=== PATIENT | male | born 1945 | race Hispanic/Latino ===

== ENCOUNTER 2017-12-17 11:58 | Emergency (ER) | payer MEDICARE ==
[2017-12-17 12:16] VITALS: BP 133/89; PULSE 99; RESP 16; TEMP 98.6; O2SAT 98
[2017-12-17] MEDS ORDERED: Lactated Ringer's 1,000 ML IV SCH (12:45)
[2017-12-17] MEDS ORDERED: Lactated Ringer's 500 ML IV SCH (13:00)
--- NOTE | 2017-12-17 13:33 | ED PDOC ---
HPI:Nausea, Vomiting, Diarrhea Time Seen by Provider: 12/17/17 12:05 Chief Complaint (Nursing): GI Problem Chief Complaint (Provider): GI Problem History Per: Patient History/Exam Limitations: no limitations Onset/Duration Of Symptoms: Days (x2) Current Symptoms Are (Timing): Still Present Additional Complaint(s): 72 year old male with medical history of renal malignancy S/P surgery, presents to the emergency department with a complaint of vomiting and diarrhea associated with generalized weakness, parched sensation and mild, crampy abdominal discomfort that is not exacerbated by movement ongoing since last night. Patient stated his had similar symptoms a few days ago. He denied any syncope, dizziness, urinary complaints, bloody stools or bloody vomiting. PMD: none provided Past Medical History Reviewed: Historical Data, Nursing Documentation, Vital Signs Vital Signs: Last Vital Signs Temp 98.6 F 12/17/17 12:13 Pulse 99 H 12/17/17 12:13 Resp 16 12/17/17 12:13 BP 133/89 12/17/17 12:13 Pulse Ox 98 12/17/17 12:13 - Medical History PMH: Back Problems (severe lumbar stenosis (4 years ago), Spondyloslisthesis (4 years ago)), HTN, Malignancy (renal) - Surgical History Surgical History: Appendectomy Other surgeries: nephrectomy - Family History Family History: States: Unknown Family Hx - Social History Current smoker - smoking cessation education provided: No Alcohol: None Drugs: Denies - Home Medications Home Medications: Ambulatory Orders Medication Instructions Recorded Meloxicam 15 mg PO DAILY #15 tablet 11/29/15 Ondansetron ODT [Zofran ODT] 4 mg PO Q6 PRN #10 odt 12/17/17 - Allergies Allergies/Adverse Reactions: Allergies Allergy/AdvReac Type Severity Reaction Status Date / Time No Known Allergies Allergy Verified 12/17/17 12:17 Review of Systems ROS Statement: Except As Marked, All Systems Reviewed And Found Negative Constitutional: Positive for: Weakness (generalized) Gastrointestinal: Positive for: Vomiting, Abdominal Pain (mild cramping and discomfort), Diarrhea, Other (parched). Negative for: Hematochezia, Hematemesis Genitourinary Male: Negative for: Dysuria, Incontinence, Hematuria Neurological: Negative for: Dizziness (or syncope) Physical Exam - Reviewed Nursing Documentation Reviewed: Yes Vital Signs Reviewed: Yes - Physical Exam Appears: Positive for: Non-toxic, No Acute Distress Head Exam: Positive for: ATRAUMATIC, NORMAL INSPECTION, NORMOCEPHALIC Skin: Positive for: Normal Color. Negative for: Pallor Eye Exam: Positive for: Normal appearance, EOMI, PERRL ENT: Positive for: Normal ENT Inspection Neck: Positive for: Normal Cardiovascular/Chest: Positive for: Regular Rate, Rhythm, Chest Non Tender Respiratory: Positive for: Normal Breath Sounds. Negative for: Decreased Breath Sounds, Respiratory Distress Gastrointestinal/Abdominal: Positive for: Normal Exam, Soft. Negative for: Tenderness, Mass Back: Positive for: Normal Inspection. Negative for: L CVA Tenderness, R CVA Tenderness Extremity: Positive for: Normal ROM (upper/lower). Negative for: Pedal Edema ( bilateral) Neurologic/Psych: Positive for: Alert, psychiatrist II-XII (intact), Oriented. Negative for: Motor/Sensory Deficits - ECG O2 Sat by Pulse Oximetry: 98 (RA) Pulse Ox Interpretation: Normal Medical Decision Making Medical Decision Making: Initial Impression: Dehydration Initial Plan: * Lactated Ringers 1,000ml IV per 1,000mls/hr * Lactated Ringers 500ml IV per 500mls/hr * Tylenol 650mg PO * Zofran 4mg IV ____ Time: 1230 --Patient is tolerating water well. --Patient refuses bloodwork. States that he has routine blood drawn every 3 months. --Requesting IV fluid, Tylenol and antiemetics. Time: 1315 --Reevaluation: patient is reporting improvement with nausea without any further episodes of diarrhea and hopeful for discharge. Provider discussed need for supportive care and plan of antiemetics. --Patient is requesting to go home. Time: 1348 --Upon provider reevaluation, patient is feeling better, medically stable and requires no further treatment in the ED at this time. Patient will be discharged home with Rx for Zofran 4mg. Counseling was provided and all questions were answered regarding diagnosis. There is agreement to discharge plan. Return if symptoms persist or worsen. Clinical Impression: Gastroenteritis Scribe Attestation: Documented by Rachel Irizarry, acting as a scribe for Weston Campos III, DO. Provider Scribe Attestation: All medical record entries made by the Scribe were at my direction and personally dictated by me. I have reviewed the chart and agree that the record accurately reflects my personal performance of the history, physical exam, medical decision making, and the department course for this patient. I have also personally directed, reviewed, and agree with the discharge instructions and disposition. Disposition - Clinical Impression Clinical Impression: Gastroenteritis - Patient ED Disposition Is Patient to be Admitted: No Counseled Patient/Family Regarding: Diagnosis, Need For Followup - Disposition Disposition: Routine/Home Disposition Time: 13:48 Condition: IMPROVED Additional Instructions: Take nausea medication zofran ODT every 6 hours as needed for nausea. Return to ER for any worse symptoms, pain, fever, blood in stool or vomit, or any concern. Prescriptions: Ondansetron ODT [Zofran ODT] 4 mg PO Q6 PRN #10 odt PRN Reason: Nausea/Vomiting Instructions: Gastroenteritis (ED) Forms: [employer] (Italian)
== END 2017-12-17 13:56 | disposition home or self-care (01) ==
LOC: H.ER 11:58
DX: K52.9 Noninfective gastroenteritis and colitis, unspecified (principal); I10 Essential (primary) hypertension; Z85.528 Personal history of other malignant neoplasm of kidney; M48.061 Spinal stenosis, lumbar region without neurogenic claudication
CPT/HCPCS: 96361; 96374; 99282; J2405; J7120

== ENCOUNTER 2018-05-03 15:58 | Observation (INO) | payer MEDICARE ==
[2018-05-03] MEDS ORDERED: Sodium Chloride 0.9% 1,000 ML IV STA (16:00)
--- NOTE | 2018-05-03 16:03 | ED PDOC ---
HPI: Abdomen Time Seen by Provider: 05/03/18 16:00 History Per: Patient Onset/Duration Of Symptoms: Days (1) Current Symptoms Are (Timing): Still Present Severity: Moderate Pain Scale Rating Of: 4 Location Of Pain/Discomfort: Epigastric, LUQ Quality Of Discomfort: Unable To Describe Associated Symptoms: denies: Fever, Nausea, Vomiting, Diarrhea Exacerbating Factors: None Alleviating Factors: None Additional Complaint(s): LUQ and epigastric abd pain since this AM.,Assoc with vomiting brownish liquid. No BM x 24 hrs. Denies fever. Past Medical History Vital Signs: Last Vital Signs Temp 98.3 F 05/03/18 16:09 Pulse 78 05/03/18 17:30 Resp 19 05/03/18 17:30 BP 136/74 05/03/18 17:30 Pulse Ox 98 05/03/18 17:30 - Medical History PMH: Back Problems (severe lumbar stenosis (4 years ago), Spondyloslisthesis (4 years ago)), HTN, Malignancy (renal) - Surgical History Surgical History: Appendectomy - Family History Family History: States: Unknown Family Hx - Home Medications Home Medications: Ambulatory Orders Medication Instructions Recorded Meloxicam 15 mg PO DAILY #15 tablet 11/29/15 Ondansetron ODT [Zofran ODT] 4 mg PO Q6 PRN #10 odt 12/17/17 - Allergies Allergies/Adverse Reactions: Allergies Allergy/AdvReac Type Severity Reaction Status Date / Time No Known Allergies Allergy Verified 12/17/17 12:17 Review of Systems Constitutional: Negative for: Fever Gastrointestinal: Positive for: Nausea, Vomiting, Abdominal Pain Physical Exam - Physical Exam Appears: Positive for: Non-toxic, Uncomfortable Skin: Positive for: Normal Color, Warm, DRY ENT: Positive for: Other (Mucous membranes dry) Gastrointestinal/Abdominal: Positive for: Normal Exam, Bowel Sounds, Tenderness (LUQ), Distended Back: Negative for: L CVA Tenderness, R CVA Tenderness - Laboratory Results Result Diagrams: 05/03/18 16:04 05/03/18 16:04 Disposition - Clinical Impression Clinical Impression: Abdominal pain, SBO (small bowel obstruction) - Patient ED Disposition Is Patient to be Admitted: Yes - Disposition Disposition Time: 18:41 Condition: FAIR - Pt Status Changed To: Hospital Disposition Of: Observation - POA Present On Arrival: None
[2018-05-03 16:10] LABS: BASO % 0.4 % (0.0-2.0); EOS # 0.1 K/uL (0.0-0.7); EOS % 0.4 % (0.0-4.0); HEMOGLOBIN 16.1 g/dL (12.0-18.0); LYMPH # 1.1 K/uL (1.0-4.3); LYMPH % 9.1 % (20.0-40.0); MEAN CELL VOLUME 85.2 fl (80.0-94.0); MEAN CORPUSCULAR HEMOGLOBIN 29.7 pg (27.0-31.0); MEAN CORPUSCULAR HGB CONC 34.9 g/dL (33.0-37.0); MEAN PLATELET VOLUME 7.7 fl (7.2-11.7); MONO # 0.6 K/uL (0.0-0.8); MONO % 4.9 % (0.0-10.0); NEUT # 10.5 K/uL (1.8-7.0); NEUT % 85.2 % (50.0-75.0); NRBC % 0.5 % (0.0-0.0); PLATELET COUNT 155 K/uL (130-400); RBC 5.42 Mil/uL (4.40-5.90); RED CELL DISTRIBUTION WIDTH 13.8 % (11.5-14.5); WHITE BLOOD COUNT 12.4 K/uL (4.8-10.8)
[2018-05-03 16:19] LABS: ALB/GLOB RATIO 1.4 (1.0-2.1); ALBUMIN 4.3 g/dL (3.5-5.0); ALT/SGPT 30 U/L (21-72); AST/SGOT 20 U/L (17-59); BLOOD UREA NITROGEN 18 mg/dl (9-20); CALCIUM 9.5 mg/dL (8.4-10.2); GFR AFRICAN-AMERICAN > 60; GFR NON-AFRICAN AMERICAN > 60; LIPASE 44 U/L (23-300)
[2018-05-03] MEDS ORDERED: Potassium Chloride 20 mEq ER Tab PO ONE (16:27)
[2018-05-03] MEDS ORDERED: Alum-Mag Hydrox-Simethicone Susp (30 mL) PO ONE (16:57)
[2018-05-03] MEDS ORDERED: Pantoprazole 40 mg EC Tab PO STA (17:11)
[2018-05-03] MEDS ORDERED: Pantoprazole 40 mg EC Tab PO ONE (17:16)
[2018-05-03] MEDS ORDERED: Iohexol 300 100 ML IJ ONE (17:32)
[2018-05-03] MEDS ORDERED: Sodium Chloride 0.9% 50 ML IV ONE (17:32)
--- NOTE | 2018-05-03 18:19 | CT ---
Date of service: 05/03/2018 PROCEDURE: CT Abdomen and Pelvis with contrast HISTORY: Abd pain COMPARISON: None. TECHNIQUE: Contrast dose: 95 mL Omnipaque 300 Radiation dose: Total exam DLP = is 843.5 mGy-cm. This CT exam was performed using one or more of the following dose reduction techniques: Automated exposure control, adjustment of the mA and/or kV according to patient size, and/or use of iterative reconstruction technique. FINDINGS: LOWER THORAX: Unremarkable. LIVER: Nonspecific 1.6 cm subcapsular hyper density in the left hepatic lobe (series 3, image 39). 1.2 cm left hepatic lobe cyst (series 3, image 21). 2.1 cm hypodense lesion with questionable peripheral nodular enhancement in the medial right hepatic lobe (series 3, image 37). Too small to characterize 8 mm hypodense lesion in the posterior inferior right hepatic lobe (series 3, image 50). Too small to characterize 8 mm hypodense lesion in the posterior inferior right hepatic lobe (series 3, image 56). No ductal dilatation. GALLBLADDER AND BILE DUCTS: Unremarkable. PANCREAS: Unremarkable. No gross lesion or ductal dilatation. SPLEEN: Multiple tiny splenic hypodensities. Splenomegaly. ADRENALS: Unremarkable. No mass. KIDNEYS AND URETERS: Small bilateral renal cysts. Tiny nonobstructive left renal calculi. No hydronephrosis. No solid mass. VASCULATURE: Unremarkable. No aortic aneurysm. BOWEL: Hiatal hernia. Small bowel dilatation measuring as wide as 3.7 cm with smooth very gradual taper with relative collapse of the distal ileum in the right lower quadrant. No gross mural thickening. APPENDIX: No findings to suggest acute appendicitis. PERITONEUM: Small bilateral fat containing inguinal hernias. No free fluid. No free air. LYMPH NODES: Unremarkable. No enlarged lymph nodes. BLADDER: Unremarkable. REPRODUCTIVE: Prostatomegaly. BONES: No acute fracture. Large sclerotic densities in the left iliac bone and left L2 vertebral body, likely bone islands. Grade 1 anterolisthesis of L4 on L5. OTHER FINDINGS: None. IMPRESSION: Multiple nonspecific hepatic lesions including a 1.6 cm left hepatic lobe subcapsular hyperdense lesion which may represent a vascular shunt or other hyperdense lesion with malignancy not excluded. Multiple hypodense hepatic lesions, mostly too small to characterize. A 2.1 cm medial right hepatic lobe hypodense lesion with peripheral nodular enhancement likely represents a hemangioma. Contrast-enhanced MRI of the liver can be obtained for further characterization as clinically warranted. Small bowel dilatation measuring as wide as 2.7 cm with smooth, gradual taper and relative collapse of the distal ileum in the anterior right lower quadrant. Findings may represent early/ developing small bowel obstruction. Additional findings as above.
[2018-05-03 18:38] LABS: BANDS 4 % (0-2); LYMPHOCYTE 12 % (20-50); MONOCYTE 6 % (0-10); NEUTROPHIL 78 % (42-75); TOTAL CELLS COUNTED 100
[2018-05-03 18:39] LABS: HYPOCHROMIC SLIGHT; MICROCYTOSIS SLIGHT; PLATELET ESTIMATE NORMAL (NORMAL)
[2018-05-03] MEDS ORDERED: Midazolam 2 MG/2 ML VIAL ONE (18:59)
[2018-05-03] MEDS ORDERED: Midazolam 2 MG/2 ML VIAL IV ONE (19:12)
--- NOTE | 2018-05-03 19:31 | CP.PCM.HP ---
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 No BM for 24 hours. Hx of appendectomy. CTAP early SBO. In ED, Surgical and GI consults were called, Drs. Ybarra and Rebeka. NGT placed. HD stable. NAD. ROS: per HPI ALL OTHER SYSTEMS REVIEWED AND NEGATIVE PMSH: HTN, renal malignancy, spinal stenosis, appendectomy FH: denies SH: denies tobacco ETOH IVDU NKDA Present on Admission - Present on Admission Any Indicators Present on Admission: No Past Patient History - Infectious Disease Hx of Infectious Diseases: None - Past Social History Smoking Status: Unknown If Ever Smoked - CARDIAC Hx Hypertension: Yes - PULMONARY Hx Respiratory Disorders: No - NEUROLOGICAL Hx Neurological Disorder: No - HEENT Hx Cataracts: Yes - RENAL Hx Renal (Kidney) Cancer: Yes - MUSCULOSKELETAL/RHEUMATOLOGICAL Hx Musculoskeletal Disorders: Yes Hx Spinal Stenosis: Yes - PSYCHIATRIC Hx Psychophysiologic Disorder: No Hx Substance Use: No - SURGICAL HISTORY Hx Appendectomy: Yes - ANESTHESIA Hx Anesthesia: Yes Hx Anesthesia Reactions: No Hx Malignant Hyperthermia: No Meds Allergies/Adverse Reactions: Allergies Allergy/AdvReac Type Severity Reaction Status Date / Time No Known Allergies Allergy Verified 12/17/17 12:17 Physical Exam - Constitutional Appears: Non-toxic, No Acute Distress - Head Exam Head Exam: ATRAUMATIC, NORMOCEPHALIC - Eye Exam Eye Exam: EOMI, Normal appearance - ENT Exam ENT Exam: Mucous Membranes Moist, Normal Oropharynx - Respiratory Exam Respiratory Exam: Clear to Auscultation Bilateral, NORMAL BREATHING PATTERN - Cardiovascular Exam Cardiovascular Exam: RRR, +S1, +S2 - GI/Abdominal Exam GI & Abdominal Exam: Hypoactive Bowel Sounds, Soft. absent: Mass, Organomegaly - Extremities Exam Extremities exam: Positive for: normal capillary refill, pedal pulses present - Back Exam Back exam: absent: CVA tenderness (L), CVA tenderness (R) - Neurological Exam Neurological exam: Alert, Oriented x3, Reflexes Normal - Psychiatric Exam Psychiatric exam: Normal Affect, Normal Mood - Skin Skin Exam: Dry, Warm Results - Vital Signs Recent Vital Signs: Last Vital Signs Temp 98.3 F 05/03/18 16:09 Pulse 76 05/03/18 19:17 Resp 19 05/03/18 17:30 BP 142/76 05/03/18 19:17 Pulse Ox 95 05/03/18 19:17 - Labs Result Diagrams: 05/03/18 16:04 05/03/18 16:04 Labs: Laboratory Results - last 24 hr 05/03/18 05/03/18 16:04 16:04 WBC 12.4 H RBC 5.42 Hgb 16.1 Hct 46.1 MCV 85.2 MCH 29.7 MCHC 34.9 RDW 13.8 Plt Count 155 MPV 7.7 Neut % (Auto) 85.2 H Lymph % (Auto) 9.1 L [place] % (Auto) 4.9 Eos % (Auto) 0.4 Baso % (Auto) 0.4 Neut # (Auto) 10.5 H Lymph # (Auto) 1.1 [place] # (Auto) 0.6 Eos # (Auto) 0.1 Baso # (Auto) 0.0 Neutrophils % (Manual) 78 H Band Neutrophils % 4 H Lymphocytes % (Manual) 12 L Monocytes % (Manual) 6 Platelet Estimate Normal Hypochromasia (manual) Slight Microcytosis (manual) Slight Sodium 141 Potassium 3.4 L Chloride 102 Carbon Dioxide 26 Anion Gap 16 BUN 18 Creatinine 0.9 Est GFR ( Amer) > 60 Est GFR (Non-Af Amer) > 60 Random Glucose 136 H Calcium 9.5 Total Bilirubin 1.5 H AST 20 ALT 30 Alkaline Phosphatase 118 Total Protein 7.4 Albumin 4.3 Globulin 3.1 Albumin/Globulin Ratio 1.4 Lipase 44 Assessment & Plan - Assessment and Plan (Free Text) Plan: 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 No BM for 24 hours. Hx of appendectomy. CTAP early SBO. In ED, Surgical and GI consults were called, Drs. Ybarra and Rebeka. NGT placed. HD stable. NAD. SBO CTAP: early SBO NGT placed NPO, with maintenance fluids GI and Surgery consults: Drs. Ybarra and Rebeka per patient request, no residents HTN Hydralazine IV PRN HTN
[2018-05-03] MEDS ORDERED: Iohexol 240 (50 ml) PO ONE (20:06)
[2018-05-03] MEDS: Potassium Ch 20mEq in D5-1/2NS 1,000 ML IV SCH (21:39)
[2018-05-04] MEDS: Potassium Ch 20mEq in D5-1/2NS 1,000 ML IV SCH (05:48)
[2018-05-04 08:09] VITALS: BP 145/94; PULSE 73; RESP 20; TEMP 97.5; O2SAT 96
[2018-05-04] MEDS ORDERED: Lactated Ringer's 1,000 ML IV SCH (10:30)
--- NOTE | 2018-05-04 10:52 | CP.PCM.CON ---
History of Present Illness - History of Present Illness History of Present Illness: 72 y.o. male comes to the hospital c/o abdominal pain for the duration of 1 day. Reports some nausea and 1 episodes of vomiting. Denies any fever or chills. Patient reports flatus this am, had a bowel movements yesterday. Currently states that feels much better and denies any abdominal pain, no nausea , no vomiting, no urinary symptoms, no sick contacts at home. Review of Systems - Constitutional Constitutional: As Per HPI - EENT Eyes: Other (unremarkable) Ears: Other (unremarkable) Nose/Mouth/Throat: Other (unremarkable) - Cardiovascular Cardiovascular: Other (unremarkable) - Respiratory Respiratory: Other (unremarkable) - Gastrointestinal Gastrointestinal: As Per HPI - Genitourinary Genitourinary: As Per HPI - Reproductive: Male Reproductive:Male: Other (unremarkable) - Musculoskeletal Musculoskeletal: Other (unremarkable) - Integumentary Integumentary: Other (unremarkable) - Neurological Neurological: Other (unremarkable) - Psychiatric Psychiatric: Other (unremarkable) - Endocrine Endocrine: Other (unremarkable) - Hematologic/Lymphatic Hematologic: Other (unremarkable) Past Patient History - Infectious Disease Hx of Infectious Diseases: None - Past Medical History & Family History Past Medical History?: Yes - Past Social History Smoking Status: Never Smoked - CARDIAC Hx Cardiac Disorders: Yes (HTN) Hx Hypertension: Yes - PULMONARY Hx Respiratory Disorders: No - NEUROLOGICAL Hx Neurological Disorder: No - HEENT Hx HEENT Problems: Yes Hx Cataracts: Yes - RENAL Hx Chronic Kidney Disease: No Other/Comment: Bening Renal tumor removed 5 yrs ago - ENDOCRINE/METABOLIC Hx Endocrine Disorders: No - HEMATOLOGICAL/ONCOLOGICAL Hx Blood Disorders: No Hx AIDS: No Hx Human Immunodeficiency Virus (HIV): No - INTEGUMENTARY Hx Dermatological Problems: No - MUSCULOSKELETAL/RHEUMATOLOGICAL Hx Musculoskeletal Disorders: Yes Hx Falls: No Hx Spinal Stenosis: Yes - GASTROINTESTINAL Hx Gastrointestinal Disorders: No - GENITOURINARY/GYNECOLOGICAL Hx Genitourinary Disorders: No - PSYCHIATRIC Hx Psychophysiologic Disorder: No Hx Substance Use: No - SURGICAL HISTORY Hx Surgeries: Yes Hx Appendectomy: Yes Other/Comment: b/l cataract, kidney surgery - ANESTHESIA Hx Anesthesia: Yes Hx Anesthesia Reactions: No Hx Malignant Hyperthermia: No Has any member of the family had a problem w/ anesthesia?: No Meds Allergies/Adverse Reactions: Allergies Allergy/AdvReac Type Severity Reaction Status Date / Time No Known Allergies Allergy Verified 12/17/17 12:17 - Medications Medications: Current Medications Hydromorphone HCl (Dilaudid) 0.5 mg IVP Q6 PRN PRN Reason: Pain, moderate (4-7) Last Admin: 05/04/18 08:43 Dose: 0.5 mg Potassium Chloride/Dextrose/Sod Cl (Potassium Chl 20 Meq In D5-1/2ns) 1,000 mls @ 125 mls/hr IV .Q8H LYLY Stop: 05/04/18 19:50 Last Admin: 05/04/18 05:48 Dose: 125 mls/hr Lactated Ringer's (Lactated Ringer's) 1,000 mls @ 100 mls/hr IV .Q10H [facility] Ondansetron HCl (Zofran Inj) 4 mg IVP Q6 PRN PRN Reason: Nausea/Vomiting Physical Exam - Constitutional Appears: Well, Non-toxic, No Acute Distress - Head Exam Head Exam: ATRAUMATIC, NORMAL INSPECTION, NORMOCEPHALIC - Eye Exam Eye Exam: EOMI, Normal appearance, PERRL Pupil Exam: NORMAL ACCOMODATION, PERRL - ENT Exam ENT Exam: Mucous Membranes Moist, Normal Exam - Neck Exam Neck exam: Positive for: Full Rom, Normal Inspection - Respiratory Exam Respiratory Exam: Clear to Auscultation Bilateral, NORMAL BREATHING PATTERN - Cardiovascular Exam Cardiovascular Exam: REGULAR RHYTHM, +S1, +S2 - GI/Abdominal Exam GI & Abdominal Exam: Normal Bowel Sounds, Soft Additional comments: NT, ND, BS+, no rebound, no guarding, well healed scar from prior appendectomy - Rectal Exam Rectal Exam: Deferred - Extremities Exam Extremities exam: Positive for: full ROM, normal inspection - Back Exam Back exam: NORMAL INSPECTION - Neurological Exam Neurological exam: Alert, CN II-XII Intact, Oriented x3 - Psychiatric Exam Psychiatric exam: Normal Affect, Normal Mood - Skin Skin Exam: Dry, Intact, Normal Color, Warm Results - Vital Signs Recent Vital Signs: Last Vital Signs Temp 97.5 F L 05/04/18 08:09 Pulse 73 05/04/18 08:09 Resp 20 05/04/18 08:09 BP 145/94 H 05/04/18 08:09 Pulse Ox 96 05/04/18 08:09 - Labs Result Diagrams: 05/03/18 16:04 05/03/18 16:04 Labs: Laboratory Results - last 24 hr 05/03/18 05/03/18 16:04 16:04 WBC 12.4 H RBC 5.42 Hgb 16.1 Hct 46.1 MCV 85.2 MCH 29.7 MCHC 34.9 RDW 13.8 Plt Count 155 MPV 7.7 Neut % (Auto) 85.2 H Lymph % (Auto) 9.1 L [place] % (Auto) 4.9 Eos % (Auto) 0.4 Baso % (Auto) 0.4 Neut # (Auto) 10.5 H Lymph # (Auto) 1.1 [place] # (Auto) 0.6 Eos # (Auto) 0.1 Baso # (Auto) 0.0 Neutrophils % (Manual) 78 H Band Neutrophils % 4 H Lymphocytes % (Manual) 12 L Monocytes % (Manual) 6 Platelet Estimate Normal Hypochromasia (manual) Slight Microcytosis (manual) Slight Sodium 141 Potassium 3.4 L Chloride 102 Carbon Dioxide 26 Anion Gap 16 BUN 18 Creatinine 0.9 Est GFR ( Amer) > 60 Est GFR (Non-Af Amer) > 60 Random Glucose 136 H Calcium 9.5 Total Bilirubin 1.5 H AST 20 ALT 30 Alkaline Phosphatase 118 Total Protein 7.4 Albumin 4.3 Globulin 3.1 Albumin/Globulin Ratio 1.4 Lipase 44 - Imaging and Cardiology CT scan - abdomen Status: Image reviewed by me, Report reviewed by me Assessment & Plan - Assessment and Plan (Free Text) Assessment: 72 y.o. male with abdominal pain that has improved, no evidence of bowel obstruction on the CT scan Plan: - Removed NG tube - start clear liquid diet - Advance diet as tolerated - If patient tolerates diet he is clear for discharge from the general surgery stand point
--- NOTE | 2018-05-04 12:17 | CP.PCM.DIS ---
Provider - Provider Date of Admission: 05/03/18 18:37 Attending physician: Miles Benavides DO Primary care physician: DR Knott Consults: Surgery : Dr Salvador GI : DR Staley Time Spent in preparation of Discharge (in minutes): 25 Diagnosis - Discharge Diagnosis (1) SBO (small bowel obstruction) Status: Acute (2) Abdominal pain Status: Acute (3) Prostatic enlargement Status: Chronic (4) Intra-abdominal adhesions Status: Acute (5) Renal stone Status: Acute Hospital Course - Lab Results Lab Results: Most Recent Lab Values WBC 12.4 K/uL (4.8-10.8) H 05/03/18 16:04 RBC 5.42 Mil/uL (4.40-5.90) 05/03/18 16:04 Hgb 16.1 g/dL (12.0-18.0) 05/03/18 16:04 Hct 46.1 % (35.0-51.0) 05/03/18 16:04 MCV 85.2 fl (80.0-94.0) 05/03/18 16:04 MCH 29.7 pg (27.0-31.0) 05/03/18 16:04 MCHC 34.9 g/dL (33.0-37.0) 05/03/18 16:04 RDW 13.8 % (11.5-14.5) 05/03/18 16:04 Plt Count 155 K/uL (130-400) 05/03/18 16:04 MPV 7.7 fl (7.2-11.7) 05/03/18 16:04 Neut % (Auto) 85.2 % (50.0-75.0) H 05/03/18 16:04 Lymph % (Auto) 9.1 % (20.0-40.0) L 05/03/18 16:04 Jones % (Auto) 4.9 % (0.0-10.0) 05/03/18 16:04 Eos % (Auto) 0.4 % (0.0-4.0) 05/03/18 16:04 Baso % (Auto) 0.4 % (0.0-2.0) 05/03/18 16:04 Neut # (Auto) 10.5 K/uL (1.8-7.0) H 05/03/18 16:04 Lymph # (Auto) 1.1 K/uL (1.0-4.3) 05/03/18 16:04 Jones # (Auto) 0.6 K/uL (0.0-0.8) 05/03/18 16:04 Eos # (Auto) 0.1 K/uL (0.0-0.7) 05/03/18 16:04 Baso # (Auto) 0.0 K/uL (0.0-0.2) 05/03/18 16:04 Neutrophils % (Manual) 78 % (42-75) H 05/03/18 16:04 Band Neutrophils % 4 % (0-2) H 05/03/18 16:04 Lymphocytes % (Manual) 12 % (20-50) L 05/03/18 16:04 Monocytes % (Manual) 6 % (0-10) 05/03/18 16:04 Platelet Estimate Normal (NORMAL) 05/03/18 16:04 Hypochromasia (manual) Slight 05/03/18 16:04 Microcytosis (manual) Slight 05/03/18 16:04 Sodium 141 mmol/l (132-148) 05/03/18 16:04 Potassium 3.4 MMOL/L (3.6-5.0) L 05/03/18 16:04 Chloride 102 mmol/L (98-107) 05/03/18 16:04 Carbon Dioxide 26 mmol/L (22-30) 05/03/18 16:04 Anion Gap 16 (10-20) 05/03/18 16:04 BUN 18 mg/dl (9-20) 05/03/18 16:04 Creatinine 0.9 mg/dl (0.8-1.5) 05/03/18 16:04 Est GFR ( Amer) > 60 05/03/18 16:04 Est GFR (Non-Af Amer) > 60 05/03/18 16:04 Random Glucose 136 mg/dL (75-110) H 05/03/18 16:04 Calcium 9.5 mg/dL (8.4-10.2) 05/03/18 16:04 Total Bilirubin 1.5 mg/dl (0.2-1.3) H 05/03/18 16:04 AST 20 U/L (17-59) 05/03/18 16:04 ALT 30 U/L (21-72) 05/03/18 16:04 Alkaline Phosphatase 118 U/L (38-126) 05/03/18 16:04 Total Protein 7.4 G/DL (6.3-8.2) 05/03/18 16:04 Albumin 4.3 g/dL (3.5-5.0) 05/03/18 16:04 Globulin 3.1 gm/dL (2.2-3.9) 05/03/18 16:04 Albumin/Globulin Ratio 1.4 (1.0-2.1) 05/03/18 16:04 Lipase 44 U/L (23-300) 05/03/18 16:04 - Hospital Course Hospital Course: 72 year old male with PMH HTN, renal malignancy, spinal stenosis, BPH presented with a one day history of severe generalized abdominal pain associated with abdominal distention and brown emesis. No BM for 24 hours. Hx of append[address]. CT of the Abdomen : Multiple nonspecific hepatic lesions including a 1.6 cm left hepatic lobe subcapsular hyperdense lesion which may represent a vascular shunt or other hyperdense lesion with malignancy not excluded. Multiple hypodense hepatic lesions, mostly too small to characterize. A 2.1 cm medial right hepatic lobe hypodense lesion with peripheral nodular enhancement likely represents a hemangioma. Contrast-enhanced MRI of the liver can be obtained for further characterization as clinically warranted. Small bowel dilatation measuring as wide as 2.7 cm with smooth, gradual taper and relative collapse of the distal ileum in the anterior right lower quadrant. Findings may represent early/ developing small bowel obstruction. NGT placed . Surgery and GI consulted. Patient's abd pain improved with NGT and pain mgt. Repeat CT of the abdomen : Interval NG tube insertion with inferred decompression of the prior small bowel distension. No small bowel obstructing mass seen. Some of the small bowel loops appear adherent to the anterior abdominal wall -can be seen with adhesions. Clinical correlation recommended. The right middle lobe pulmonary nodule is stable since 2011 The prior liver findings are not apparent on this exam likely due to differences in technique. Consider MRI of the liver for follow-up assessment/ characterisation. The prior bilateral renal hypodense masses are less apparent on this exam - previously renal cysts were referenced. Two nonobstructing left renal calculi. No obstructing ureteral calculi appreciated. Currently projecting within the bladder near the right ureterovesical junction is a calculus a similar finding was noted within the bladder however on the contralateral left side at same level. Mall bladder calculus dependent in position is compatible with this. No proximal dilatation the distal ureters is seen to suggest an acute obstruction from this currently no hydronephrosis or hydroureter appreciated NGT d/c . Patient gradually on diet which he tolerated Discharge Exam - Head Exam Head Exam: ATRAUMATIC, NORMAL INSPECTION, NORMOCEPHALIC - Eye Exam Eye Exam: EOMI, Normal appearance Pupil Exam: NORMAL ACCOMODATION - ENT Exam ENT Exam: Mucous Membranes Moist, Normal External Ear Exam - Neck Exam Neck exam: Full Rom - Respiratory Exam Respiratory Exam: NORMAL BREATHING PATTERN. absent: Respiratory Distress - Cardiovascular Exam Cardiovascular Exam: REGULAR RHYTHM, +S1, +S2 - GI/Abdominal Exam GI & Abdominal Exam: Normal Bowel Sounds, Soft. absent: Tenderness - Extremities Exam Extremities exam: full ROM, normal capillary refill - Back Exam Back exam: absent: CVA tenderness (L), CVA tenderness (R) - Neurological Exam Neurological exam: Alert, CN II-XII Intact, Normal Gait, Oriented x3, Reflexes Normal - Psychiatric Exam Psychiatric exam: Normal Affect, Normal Mood - Skin Skin Exam: Dry, Normal Color, Warm Discharge Plan - Discharge Medications Prescriptions: oxyCODONE/Acetaminophen [Percocet 5/325 mg Tab] 1 tab PO Q6 PRN #20 tab PRN Reason: Pain, Moderate (4-7) - Follow Up Plan Condition: IMPROVED Disposition: HOME/ ROUTINE Instructions: Small Bowel Obstruction (DC), Acute Abdominal Pain (DC) Additional Instructions: follow up with your primary MD appointment at [facility] appt with Urology terri Referrals: Reinaldo Ybarra MD [Staff Provider] - Weston Staley MD, PhD [Staff Provider] - Daniele Knott MD [Family Provider] -
--- NOTE | 2018-05-04 13:41 | CT ---
Date of service: 05/04/2018 PROCEDURE: CT Abdomen and Pelvis with contrast HISTORY: eval for SBO per surgery team COMPARISON: CT abdomen and pelvis with IV contrast 05/03/2018. CTA chest with IV contrast 01/04/2012 TECHNIQUE: Contrast dose: Radiation dose: Total exam DLP = mGy-cm. This CT exam was performed using one or more of the following dose reduction techniques: Automated exposure control, adjustment of the mA and/or kV according to patient size, and/or use of iterative reconstruction technique. FINDINGS: LOWER THORAX: Unremarkable. 5 to 6 mm smooth the marginated solid nodule - right middle lobe is stable since 2011 suggesting benignity. More posteriorly and more dependent the physician patchy areas of ground-glass opacity contiguous with sub pleural minimal thickening enter trace fluid and trace subsegmental atelectatic changes. Cardiomegaly no pericardial effusion LIVER: Unremarkable. No gross lesion or ductal dilatation. GALLBLADDER AND BILE DUCTS: Unremarkable. PANCREAS: Unremarkable. No gross lesion or ductal dilatation. SPLEEN: Unremarkable. ADRENALS: Unremarkable. No mass. KIDNEYS AND URETERS: Bilateral renal faint hypodensities better perceived on the prior IV contrast enhanced study from the day before. . Nonobstructing left renal calculi the largest appears to be 4 to 5 mm in size. No hydronephrosis. No hydroureter. Currently a punctate hyperdensity resembling a recently passed calculus from the right distal ureter into the bladder is noted. This is not seen as such on the prior study in study similarly sized - similarly hyperdense focus was seen near the left ureterovesical junction within the bladder. This may represent a bladder calculus which has moved from 1 position to the other position. No proximal ureteral dilatation is seen on the current study or on the prior study. No prior right renal or ureteral calculi were noted. VASCULATURE: Phleboliths No aortic aneurysm. BOWEL: An NG tube tip is in the stomach. . The prior small-bowel dilatation has markedly improved and diminished in caliber on the current study. No current small-bowel or large bowel obstruction. Appreciated. Stool retention. No gross mural thickening. APPENDIX: No finding seen to suggest acute appendicitis. PERITONEUM: Unremarkable. No free fluid. No free air. LYMPH NODES: Unremarkable. No enlarged lymph nodes. BLADDER: Calculus probably within the right posterior bladder -as referenced above in the kidney in ureteral suction. There is hyperdensity of the hyperdense bladder contents are an compatible swell with contrast laden urine in the bladder from patient's since 2012 compatible with benign etiology. Preceding CT IV contrast enhanced study. Only p.o. contrast was administered at this setting. REPRODUCTIVE: Enlarged prostate-unchanged BONES: Left iliac and large left L2 vertebrae sclerotic lesion no pathological fractures seen. There are multiple smaller sclerotic foci throughout the lumbar spine and S1 vertebrae benign bone islands are compatible with this. Blastic lesions cannot be excluded -clinical correlation recommended. OTHER FINDINGS: None. IMPRESSION: Interval NG tube insertion with inferred decompression of the prior small bowel distension. No small bowel obstructing mass seen. Some of the small bowel loops appear adherent to the anterior abdominal wall -can be seen with adhesions. Clinical correlation recommended. The right middle lobe pulmonary nodule is stable since 2012 The prior liver findings are not apparent on this exam likely due to differences in technique. Consider MRI of the liver for follow-up assessment/characterisation. The prior bilateral renal hypodense masses are less apparent on this exam -previously renal cysts were referenced. Two nonobstructing left renal calculi. No obstructing ureteral calculi appreciated. Currently projecting within the bladder near the right ureterovesical junction is a calculus a similar finding was noted within the bladder however on the contralateral left side at same level. Mall bladder calculus dependent in position is compatible with this. No proximal dilatation the distal ureters is seen to suggest an acute obstruction from this currently no hydronephrosis or hydroureter appreciated Concordant results (preliminary interpretation) provided by [employer].
== END 2018-05-04 14:17 | disposition home or self-care (01) ==
LOC: H.ER 15:58 → H.ERHOLD 18:37 → H.MEDSURG1 20:55
PROVIDERS: ADMIT Internal Medicine; ATTEND Internal Medicine
DX: K66.0 Peritoneal adhesions (postprocedural) (postinfection) (principal); N20.0 Calculus of kidney; N21.0 Calculus in bladder; N40.0 Benign prostatic hyperplasia without lower urinary tract symptoms; I10 Essential (primary) hypertension; Z85.528 Personal history of other malignant neoplasm of kidney; Z90.49 Acquired absence of other specified parts of digestive tract
CPT/HCPCS: 74176; 74177; 80053; 83690; 85025; 96374; 99284; A4322; G0378; J1170; J2060; J2250; J2270; J2405; J7030; Q9966; Q9967